=== PATIENT | male | born 1995 | race African-American/Black ===

== ENCOUNTER 2021-06-12 23:49 | Emergency (ER) | payer SELFPAY ==
[~2021-06-12] VITALS: Ht 175.3 cm; Wt 122.5 kg
[2021-06-13] MEDS ORDERED: IBUPROFEN600 MG PO (02:00)
[2021-06-13] MEDS ORDERED: TAMIFLU75 MG PO (02:00)
== END 2021-06-13 02:15 | disposition home or self-care (01) ==
LOC: ER 23:56
DX: J10.1 Influenza due to other identified influenza virus with other respiratory manifestations (principal); R05.9 Cough, unspecified; R53.81 Other malaise; Z20.822 Contact with and (suspected) exposure to COVID-19
CPT/HCPCS: 71045; 99283; U0002